=== PATIENT | male | born 1960 | race Caucasian/White ===

== ENCOUNTER → 2020-05-17 | Outpatient (CLI) | payer MEDICARE, OTHER ==
--- NOTE | 2020-05-17 16:36 | Diagnostic Imaging Report ---
PROCEDURE: CT abdomen and pelvis without contrast. TECHNIQUE: Multiple contiguous axial images were obtained through the abdomen and pelvis without the use of intravenous contrast. Auto Exposure Controls were utilized during the CT exam to meet ALARA standards for radiation dose reduction. INDICATION: Urinary tract infections. COMPARISON: I have no previous. FINDINGS: The liver is somewhat small and nodular along its surface with relative hypertrophy of its caudate lobe presumptively owing to cirrhosis. The gallbladder is stone containing and partially contracted with no bile duct dilatation. There is a moderate degree of splenomegaly with the spleen measuring 21 cm cephalocaudal. There is no hydroureteronephrosis. There is no appreciable ascites or fluid collection. There is no bowel obstruction. There is a retrocardiac hiatal hernia. Adrenals are negative. The nonenhanced pancreas is nonacute. There is nonaneurysmal atherosclerotic vascular calcification. IMPRESSION: Likely cirrhosis and splenomegaly owing to portal hypertension, but no ascites. Hiatal hernia with no bowel, biliary, or urinary tract obstruction. No radiodense stone. The unobstructed urinary tracts appear nonfocal and nonacute. Dictated by: Dictated on workstation # [id number]
== END ==
LOC: RAD 12:30
PROVIDERS: ATTEND Urology
DX: K44.9 Diaphragmatic hernia without obstruction or gangrene (principal); R31.9 Hematuria, unspecified
CPT/HCPCS: 36415; 74176; 84153

== ENCOUNTER → 2020-06-06 | Outpatient (CLI) | payer MEDICARE, OTHER ==
[~2020-06-06] MED LIST: DIATRIZOATE 30% 300 ML (CYSTOGRAFIN) VIAL UR ONE
--- NOTE | 2020-06-06 15:24 | Diagnostic Imaging Report ---
INDICATION: Urethral stricture. TECHNIQUE: The patient was brought to the fluoroscopy suite and placed on table in the supine position. Cystografin contrast was injected in a retrograde fashion through the penile meatus and fluoroscopic imaging and spot films were obtained. A total of 23 seconds of fluoroscopic time was utilized. There is a somewhat beaded appearance to the anterior urethra. There is a focal stricture identified in the anterior urethra near the junction with the bulbous urethra. Contrast does flow freely through this stricture and into the urinary bladder. IMPRESSION: Beaded appearance to the anterior urethra, likely on the basis of chronic urethritis. There is a focal short segment stricture present, as described, but contrast does flow freely beyond the stricture into the posterior urethra and urinary bladder. Dictated by: Dictated on workstation # [id number]
== END ==
LOC: RAD 13:56
PROVIDERS: ATTEND Urology
DX: N35.919 Unspecified urethral stricture, male, unspecified site (principal)
CPT/HCPCS: 74450